=== PATIENT | male | born 1960 | race Caucasian/White ===

== ENCOUNTER 2021-09-13 07:30 | Inpatient (IN) | payer BC, SELFPAY ==
[2021-09-13] VITALS (27 sets, daily range): BP systolic 107–173; BP diastolic 69–112; PULSE 90–110; RESP 18–22; TEMP 36.7–36.9; O2SAT 92–100; BMI 28.0; BMI 28.1; BMI 31.2
--- NOTE | 2021-09-13 | IR_ITS ---
APPROVED REPORT Patient Location: Emergent Crester: HARMEET Cottrell RT (R) PROCEDURES 1. Left heart catheterization 2. Selective coronary arteriography 3. Left ventriculography 4. PTCA/stent to the left anterior descending 5. PTCA/stent of the first diagonal branch of the left anterior descending INDICATION 1. Acute myocardial infarction, 2. Abnormal EKG SCAI INDICATION Patient is a 61-year-old white male who presented with chest pain. He has been having chest pain for over 24 hours. Became progressively worse. He therefore came into the emergency room. In the emergency room he had ST elevation throughout the anterior leads. Secondary to this and continued pain he was taken directly to the cardiac catheterization laboratory Informed consent was obtained prior to the procedure. COMPLICATIONS NONE Estimated Blood Loss: LESS THAN 10 ML TECHNIQUE One percent lidocaine was used to anesthetize the right groin. The right femoral artery was accessed via the Seldinger technique. I started with a 6 Lao sheath. Catheter used for the procedure was an EBU 3.5 guide catheter with sideholes. I also used a Felipa right #4 catheter. Heparin was given in the emergency room as well as 120 mg of Brilinta. ACT was checked and additional heparin given during the procedure as well as that the end of the case ANGIOGRAPHIC RESULTS The left main artery Angiographically normal The left anterior descending artery 100% occluded after a second diagonal branch. The second diagonal branch was noted to have 95% proximal and 95% mid stenosis. There was calcium in the mid left anterior descending but there was EMELYN 0 flow The circumflex artery With smooth 20% proximal and mid stenosis The right coronary artery Had a complex 70 to 75% proximal stenosis The MANZO ventriculogram reveals Mild reduction in left ventricular systolic function with an ejection fraction of 40 to 45%. There was moderate to severe apical hypokinesis The left ventricular end-diastolic pressure 18 I initially went in with a EBU 3.5 guide catheter with sideholes. There was blunt occlusion of the left anterior descending after the takeoff of a second diagonal branch which was moderate in size with disease as mentioned above. I first tried to wire this with a Choice PT wire. I was unable. I went in with a whisper wire and was able to form a loop and get across with the help of a balloon. Once I got across I then ballooned the mid left anterior descending and restored EMELYN I flow. I stented the mid left anterior descending with a resolute [place] drug-eluting stent and then stented again in the mid/distal left anterior descending with a resolute [place] drug-eluting stent. The second stent overlapped the distal portion of my first stent. I still only had EMELYN I flow and could barely see flow to the apex. I thought some of this might be spasm. There was still a complex lesion right at the level of the diagonal branch and left anterior descending and the proximal/mid vessel. I went ahead and took a Choice PT wire and wired the second diagonal branch. I then stented the proximal diagonal branch extending into the mid vessel. I left my wire down the left anterior descending. I still missed the ostium so I went ahead and placed 1 other stent in the ostial/proximal second diagonal branch of the left anterior descending. This resulted in 0% residual stenosis down the diagonal branch and excellent flow. Before I took the stent patient had significant elevation just with crossing the diagonal branch. That resolved once the stents were deployed. I then ballooned where the stent was hanging out into the left anterior descending. I was then
--- NOTE | 2021-09-13 07:22 | ECG_ITS ---
APPROVED REPORT Exam: Resting ECG HR:101 bpm ECG Measurements Heart Rate 101 AXES OK 160 P 6 QRSd 92 QRS 64 QT 350 T 83 QTc 408 Conclusion SINUS TACHYCARDIA WITH OCCASIONAL VENTRICULAR PREMATURE COMPLEXES ANTERIOR MYOCARDIAL INFARCTION , POSSIBLY ACUTE [40+ ms Q WAVE AND/OR ST/T ABNORMALITY IN V3/V4] ACUTE PR UNCONFIRMED REPORT Electronically signed by : Ishan Valdovinos MD 09/15/2021 14:07:22
--- NOTE | 2021-09-13 07:30 | HMH.EDCP ---
ED Disposition Clinical Impression: Myocardial infarction acute Qualifiers: Myocardial infarction type: ST elevation myocardial infarction Involved coronary artery: unspecified coronary artery Qualified Code(s): I21.3 - ST elevation (STEMI) myocardial infarction of unspecified site Disposition: Admitted As Inpatient Condition on Discharge: Serious - Critical Care Critical Care Time: Yes Attestation: On , the high probability of a clinically significant, sudden or life threatening deterioration of the following system(s) required my full and direct attention, intervention and personal management. The time I documented below is in addition to time spent performing reported procedures but includes the following listed in this critical care notation. Total Critical Care Time: 35 Vital system(s) involved:: Circulatory Failure My critical care processes included: Assessment & monitoring of V/S, Initial and Re-exams, Data Review/Interpretation, Coordinating Care, Medication Orders and management, Documentation Medical Decision Making - Mitch Inquiry Pt receiving controlled substance: No Vital Signs: 09/13/21 07:30 09/13/21 07:31 09/13/21 07:37 Temperature 98.2 F Temperature Source Oral Pulse Rate 108 H 105 H Pulse Rate [Left Radial] 108 H Respiratory Rate 18 Blood Pressure 154/110 H 173/112 H Blood Pressure [Right Arm] 154/110 H Blood Pressure Mean Blood Pressure Mean [Right Arm] 124 Blood Pressure Source Automatic Cuff Automatic Cuff Blood Pressure Source [Right Arm] Automatic Cuff Blood Pressure Position Sitting Sitting Blood Pressure Position [Right Arm] Sitting 02 Sat by Pulse Oximetry 96 96 96 Oxygen Delivery Method Room Air Room Air Room Air 09/13/21 07:41 09/13/21 07:47 09/13/21 07:55 Temperature Temperature Source Pulse Rate 110 H 107 H 109 H Pulse Rate [Left Radial] Respiratory Rate Blood Pressure 164/89 H 159/96 H 136/90 Blood Pressure [Right Arm] Blood Pressure Mean 110 105 Blood Pressure Mean [Right Arm] Blood Pressure Source Automatic Cuff Blood Pressure Source [Right Arm] Blood Pressure Position Sitting Blood Pressure Position [Right Arm] 02 Sat by Pulse Oximetry 92 L 93 L 93 L Oxygen Delivery Method Room Air Room Air Room Air 09/13/21 08:00 Temperature 98.2 F Temperature Source Pulse Rate 109 H Pulse Rate [Left Radial] Respiratory Rate 18 Blood Pressure 136/90 Blood Pressure [Right Arm] Blood Pressure Mean Blood Pressure Mean [Right Arm] Blood Pressure Source Blood Pressure Source [Right Arm] Blood Pressure Position Blood Pressure Position [Right Arm] 02 Sat by Pulse Oximetry Oxygen Delivery Method Room Air - Lab Data Lab Results 09/13/21 07:35: WBC 16.0 H, RBC 5.53, Hgb 17.0, Hct 53.0 H, MCV 95.9 H, MCH 30.7, MCHC 32.0, RDW 13.7, Plt Count 280, MPV 8.3, Neut % (Auto) 86.9 H, Lymph % (Auto) 6.2 L, [place] % (Auto) 5.5, Eos % (Auto) 0.6, Baso % (Auto) 0.8, Neut # (Auto) 14.0 H, Lymph # (Auto) 1.0, [place] # (Auto) 0.9, Eos # (Auto) 0.1, Baso # (Auto) 0.1, Total Counted 100, Neutrophils % (Manual) 81 H, Lymphocytes % (Manual) 12, Monocytes % (Manual) 7, Platelet Estimate Normal, RBC Morphology Normal 09/13/21 07:35: Sodium 128 L, Potassium 4.3, Chloride 94 L, Carbon Dioxide 26, Anion Gap 12.3, BUN 7 L, Creatinine 0.90, Estimated Creat Clear 110, Estimated GFR 86, Est GFR ( Amer) 104, Glucose 154 H, Calcium 9.2, Total Bilirubin 1.0, AST 540 H*, ALT 77, Alkaline Phosphatase 64, Troponin I 60.20 H, NT-Pro-B Natriuret Pep 3710 H, Total Protein 7.8, Albumin 4.3, Globulin 3.5 H, Albumin/Globulin Ratio 1.2 09/13/21 07:35: PT 11.3, INR 1.00, APTT 37.9 H 09/13/21 07:35: Magnesium 1.4 L 09/13/21 07:55: SARS-CoV-2 (PCR) Not detected, Influenza A Untype (PCR) Not detected, Influenza Type B (PCR) Not detected Result diagrams: 09/13/21 07:35 09/13/21 07:35 Orders (Tests/Meds): ED MEDICATIONS Generic Name Dose Route Start Last Admin
--- NOTE | 2021-09-13 07:34 | XR_ITS ---
PROCEDURE INFORMATION: Exam: XR Chest Exam date and time: 09/13/2021 7:41 AM Age: 61 years old Clinical indication: Angina and shortness of breath; Additional info: Stemi/cp TECHNIQUE: Imaging protocol: Radiologic exam of the chest. Views: 1 view. COMPARISON: No relevant prior studies available. FINDINGS: Lungs: Mild left basilar and moderate right interstitial/alveolar opacities; question pneumonia. Pleural spaces: No pneumothorax. Heart/Mediastinum: Mild prominence of the cardiac silhouette, accentuated by the AP projection. Bones/joints: No acute fracture. IMPRESSION: Mild left basilar and moderate right interstitial/alveolar opacities; question pneumonia.
--- NOTE | 2021-09-13 07:41 | PC.NURSE ---
FAMILY AT BEDSIDE. PATIENT HAS BEEN PREPPED FOR HEART CATH. AWAITING VP BIOLOGY TEAM.
--- NOTE | 2021-09-13 07:42 | PC.NURSE ---
0724: EKG SENT ON STEMI PHONE. DR. LUDWIG CONFIRMED STEMI. DR. LUDWIG CALLED TO NOTIFY US TO CALL DR. ANG. 0725: DR. STILES SPEAKING WITH DR. ANG TO NOTIFY HIM OF STEMI. DR. ANG STATED TO ACTIVATE STEMI TEAM. 0728: STEMI TEAM PAGED. 07: Allyssa SOLORIO RN SPOKE WITH Noemy JIMENEZ RN 0730: Allyssa SOLORIO RN SPOKE WITH Kevin SANCHEZ RN AND Kevin STEPHENS, [facility]. 0732: DR. RODRIGUEZ PAGED TO NOTIFY OF ADMISSION. AWAITING CALL BACK. 0738: Allyssa SOLORIO RN SPOKE TO DR. ANG TO INQUIRE IF HE WOULD LIKE ANY MEDICINES GIVEN PRIOR TO ARRIVAL. DR. ANG GAVE VERBAL ORDER FOR 7,000 UNITS OF HEPARIN IVP AND 180MG OF BRILINTA. 0747: DR. RODRIGUEZ PAGED AGAIN. AWAITING CALL BACK.
[2021-09-13 07:49] LABS: Basophils # 0.1 K/mm3 (0-0.2); Basophils % 0.8 % (0.1-2.0); Eosinophils # 0.1 K/mm3 (0.0-0.4); Eosinophils % 0.6 % (0.1-12.0); Lymphocytes % 6.2 % (10-50); Mean Corpuscular Hemoglobin 30.7 pg (27.0-31.2); Mean Corpuscular Volume 95.9 fl (80-94); Mean Platelet Volume 8.3 fl (7.4-10.4); Monocytes # 0.9 K/mm3 (0.1-1.0); Monocytes % 5.5 % (1.7-9.3); Neutrophils % 86.9 % (37.0-80.0); Platelet Count 280 K/mm3 (142-424); Red Blood Count 5.53 M/mm3 (4.60-6.20); Red Cell Distribution Width 13.7 % (11.5-17.5)
[2021-09-13 07:51] LABS: MANUAL DIFFERENTIAL MANUAL DIFFERENTIAL (MANUAL DIFF)
--- NOTE | 2021-09-13 07:54 | PC.NURSE ---
covid swab sent to lab
--- NOTE | 2021-09-13 07:54 | PC.NURSE ---
Dr. Howard speaking with Dr. Lomeli at this time
[2021-09-13 07:59] LABS: Coronavirus 19, PCR Not Detected (NotDetected); Influenza A, PCR Not Detected (NotDetected); Influenza B, PCR Not Detected (NotDetected)
--- NOTE | 2021-09-13 08:00 | PC.NURSE ---
DARELL Maguire in entry level lab technician called and reports they are ready for patient in the entry level lab technician. pt being transported via stretcher with Elayne Martell RN and Rosalba Contreras RN
[2021-09-13 08:02] LABS: Alanine Aminotransferase 77 U/L (12-78); Albumin Level 4.3 g/dl (3.5-5.0); Albumin/Globulin Ratio 1.2 (1.1-1.8); Alkaline Phosphatase 64 U/L (38-126); Anion Gap 12.3 mEq/L (5-15); Aspartate Amino Transferase 540 U/L (17-59); Blood Urea Nitrogen 7 mg/dl (9-20); Calcium 9.2 mg/dl (8.4-10.2); Carbon Dioxide 26 mmol/L (22.0-30.0); Chloride 94 mmol/L (98-107); Creatinine Clearance Estimated 110 mL/min (50-200); Estimated Glomerular Filt Rate 86 ml/min (>60); GFR (African American) 104 ML/MIN (>60); Globulin 3.5 g/dL (1.3-3.2); Glucose 154 mg/dl (74-100); Potassium 4.3 mmoL/L (3.5-5.1); Sodium 128 mmol/L (136-145); Total Protein,Serum 7.8 g/dl (6.3-8.2)
[2021-09-13 08:14] LABS: NT Pro Brain Natriuretic Pep. 3710 pg/mL (0-125)
--- NOTE | 2021-09-13 08:15 | PC.NURSE ---
Spoke with Indigo from lab needed MAG and PTT. So orders were put in for needed labs.
[2021-09-13 08:26] LABS: Magnesium 1.4 mg/dl (1.6-2.3)
[2021-09-13 08:29] LABS: Activated Partial Thrombo Time 37.9 seconds (22.8-30.6); Prothrombin Time 11.3 seconds (10.1-12.5)
[2021-09-13 08:56] LABS: Lymphocytes % 12 % (10-50); Monocytes % 7 % (2-9); Neutrophils % 81 % (42-76); Total Cells Counted 100
[2021-09-13 08:57] LABS: RBC Morphology Normal
[2021-09-13 08:58] LABS: Platelet Estimate Normal
[2021-09-13 11:11] LABS: CATHL Activated Clotting Time 234 SEC (74-125)
[2021-09-13 11:12] LABS: CATHL Activated Clotting Time 221 SEC (74-125)
--- NOTE | 2021-09-13 14:41 | HMH.HP ---
*Admission Date: 09/13/21 *Chief complaint: Chest pain *History of present illness: Mr. Leslie is a 61-year-old white male who presented to the ER early this morning with a typical history for cardiac chest pain that had been persistent for about 36 hours. He noted some mild shortness of breath. He had been doing some strenuous lifting at work and thought he had simply strained a muscle. On arrival to the ER, his initial EKG was consistent with a STEMI and STEMI alert was called and he was taken directly to the blood bank laboratory technologist by Dr. Yehuda Sesay placed for stents in the LAD and 2 stents in the second diagonal branch of the LAD. Patient was also noted to have significant RCA stenosis which was not addressed at this time. I am seeing the patient after he has arrived to the stepdown unit. He is now feeling much better and all the chest pain and pressure has resolved. He has no past history of heart disease. He does smoke 2 packs of cigarettes per day. He has a family history of heart disease in his mother. [facility] History Medical History: Denies:: Diabetes Mellitus Type 2, Hyperlipidemia, Hypertension *Have you ever received a pneumonia vaccine?: No *Have you received a flu vaccine this season?: No Other Surgeries: Yes: No Previous Surgery Amputation: No Fractures: Yes (finger, toe) - *Social History Last grade of school completed: 7th or 8th Smoking Status: Current every day smoker Tobacco Type: cigarettes # Packs/Day (cigarettes): 2 Alcohol Intake: never *Occupational Status:: employed Household Members: none *Travel in the last 8 weeks: None Family Hx:: Cancer, Heart Attack Review of Systems - Constitutional Denies malaise - Eyes Denies change in vision - ENT Denies dizziness, Denies headache(s) - *Cardiovascular Reports chest pain (See HPI) - *Respiratory Reports shortness of breath, Denies chest congestion, Denies cough - *Gastrointestinal Denies change in bowel habits, Denies nausea - *Genitourinary Reports difficulty urinating - *Musculoskeletal Denies joint pain - Integumentary/Breasts Denies change in skin color - *Neurologic Denies confusion, Denies dizziness, Denies memory loss - Psychiatric Denies behavioral changes - Endocrine Denies rapid, pounding, or irregular heartbeat - Hematologic/Lymphatic Denies easy bruising Meds Allergies Allergy/AdvReac Type Severity Reaction Status Date / Time No Known Allergies Allergy Verified 09/13/21 07:34 Exam Vital signs and Labs for Last 24 Hours: Temp Pulse Resp BP Pulse Ox 98.1 F 101 H 20 164/89 H 95 09/13/21 12:00 09/13/21 12:10 09/13/21 12:10 09/13/21 12:10 09/13/21 12:10 Laboratory Results - last 24 hr 09/13/21 07:35: WBC 16.0 H, RBC 5.53, Hgb 17.0, Hct 53.0 H, MCV 95.9 H, MCH 30.7, MCHC 32.0, RDW 13.7, Plt Count 280, MPV 8.3, Neut % (Auto) 86.9 H, Lymph % (Auto) 6.2 L, [place] % (Auto) 5.5, Eos % (Auto) 0.6, Baso % (Auto) 0.8, Neut # (Auto) 14.0 H, Lymph # (Auto) 1.0, [place] # (Auto) 0.9, Eos # (Auto) 0.1, Baso # (Auto) 0.1, Total Counted 100, Neutrophils % (Manual) 81 H, Lymphocytes % (Manual) 12, Monocytes % (Manual) 7, Platelet Estimate Normal, RBC Morphology Normal 09/13/21 07:35: Sodium 128 L, Potassium 4.3, Chloride 94 L, Carbon Dioxide 26, Anion Gap 12.3, BUN 7 L, Creatinine 0.90, Estimated Creat Clear 110, Estimated GFR 86, Est GFR ( Amer) 104, Glucose 154 H, Calcium 9.2, Total Bilirubin 1.0, AST 540 H*, ALT 77, Alkaline Phosphatase 64, Troponin I 60.20 H, NT-Pro-B Natriuret Pep 3710 H, Total Protein 7.8, Albumin 4.3, Globulin 3.5 H, Albumin/Globulin Ratio 1.2 09/13/21 07:35: PT 11.3, INR 1.00, APTT 37.9 H 09/13/21 07:35: Magnesium 1.4 L 09/13/21 07:55: SARS-CoV-2 (PCR) Not detected, Influenza A Untype (PCR) Not detected, Influenza Type B (PCR) Not detected 09/13/21 08:26: Activated Clotting Time 221 H* 09/13/21 09:07: Activated Clotting Time 234 H* I & O for Last 24 hours: Intake & Output 09/11/21 09/12/21
--- NOTE | 2021-09-13 16:04 | PC.NURSE ---
Patient is s/p STEMI this am, heart cath with coronary stenting to LAD and Diag, right femoral cath site cdi with dsg in place, no bleeding or hematoma noted, ST elevation noted on telemetry, MD aware, patient is alert and oriented x4, perrla, HR reg, no edema noted, abd soft and nontender with active bowel sounds in all quads, appetite good, voids per urinal and BR without difficulty, peripheal pulses 2+, denies any CP or SOA at this time, call light in reach, bed in lowest position.
[2021-09-14] VITALS (14 sets, daily range): BP systolic 95–125; BP diastolic 56–85; PULSE 88–110; RESP 18–22; TEMP 36.4–37.3; O2SAT 94–100; BMI 31.5
--- NOTE | 2021-09-14 06:03 | PC.NURSE ---
Pt resting in bed. States he feels better. Tachypnea noted. Pt denies soa. Pt remains on RA. (R) femoral cath site is C/D/I. No hematoma noted. BP stable. HR tachycardic at times. Pt remains sinus with ST elevation. MD aware. Medications administered per may. No other concerns.
[2021-09-14 07:05] LABS: Basophils # 0.1 K/mm3 (0-0.2); Basophils % 0.4 % (0.1-2.0); Eosinophils % 0.2 % (0.1-12.0); Hematocrit 46.9 % (42.0-52.0); Hemoglobin 16.2 g/dL (14.1-18.0); Lymphocytes # 1.5 K/mm3 (0.7-4.5); Lymphocytes % 8.8 % (10-50); Mean Corpuscular HGB Conc 34.6 g/dL (31.8-35.4); Mean Corpuscular Hemoglobin 31.4 pg (27.0-31.2); Mean Corpuscular Volume 90.6 fl (80-94); Mean Platelet Volume 8.5 fl (7.4-10.4); Monocytes # 1.3 K/mm3 (0.1-1.0); Monocytes % 7.5 % (1.7-9.3); Neutrophils # 14.4 K/mm3 (1.8-7.8); Neutrophils % 83.1 % (37.0-80.0); Platelet Count 248 K/mm3 (142-424); Red Blood Count 5.18 M/mm3 (4.60-6.20); Red Cell Distribution Width 13.9 % (11.5-17.5); White Blood Count 17.3 K/mm3 (4.8-10.8)
[2021-09-14 07:11] LABS: MANUAL DIFFERENTIAL MANUAL DIFFERENTIAL (MANUAL DIFF)
[2021-09-14 07:26] LABS: Alanine Aminotransferase 52 U/L (12-78); Albumin Level 3.6 g/dl (3.5-5.0); Albumin/Globulin Ratio 1.1 (1.1-1.8); Alkaline Phosphatase 59 U/L (38-126); Anion Gap 11.6 mEq/L (5-15); Aspartate Amino Transferase 205 U/L (17-59); Bilirubin,Total 0.9 mg/dl (0.2-1.3); Blood Urea Nitrogen 10 mg/dl (9-20); Calcium 8.9 mg/dl (8.4-10.2); Carbon Dioxide 21 mmol/L (22.0-30.0); Chloride 101 mmol/L (98-107); Cholesterol 174 mg/dl (140-200); Creatinine Clearance Estimated 99 mL/min (50-200); Estimated Glomerular Filt Rate 76 ml/min (>60); GFR (African American) 92 ML/MIN (>60); Globulin 3.3 g/dL (1.3-3.2); Glucose 107 mg/dl (74-100); HDL Cholesterol 43 mg/dl (40-60); Potassium 3.6 mmoL/L (3.5-5.1); Sodium 130 mmol/L (136-145); Total Protein,Serum 6.9 g/dl (6.3-8.2); Triglycerides 60 mg/dl (30-150); VLDL Cholesterol 12 mg/dL (0-40)
[2021-09-14 07:37] LABS: Direct LDL Cholesterol 81.63 mg/dL (100-129)
[2021-09-14 08:31] LABS: Lymphocytes % 13 % (10-50); Monocytes % 6 % (2-9); Neutrophils % 81 % (42-76); Total Cells Counted 100
[2021-09-14 08:32] LABS: Platelet Estimate Normal; RBC Morphology Normal
--- NOTE | 2021-09-14 09:30 | P.PN_ITS ---
Internal Medicine - PN: Subj *Date: 09/14/21 *Time: 09:30 Interval history: He is feeling much better after his heart cath yesterday. Denies pain or pressure. No shortness of breath. He would like to go home today. Exam Vital signs and Labs for Last 24 Hours: Temp Pulse Resp BP Pulse Ox 98.8 F 100 H 21 125/77 100 09/14/21 04:00 09/14/21 08:00 09/14/21 06:00 09/14/21 06:00 09/14/21 06:00 Laboratory Results - last 24 hr 09/13/21 08:26: Activated Clotting Time 221 H* 09/13/21 09:07: Activated Clotting Time 234 H* 09/14/21 06:16: WBC 17.3 H, RBC 5.18, Hgb 16.2, Hct 46.9, MCV 90.6, MCH 31.4 H, MCHC 34.6, RDW 13.9, Plt Count 248, MPV 8.5, Neut % (Auto) 83.1 H, Lymph % (Auto) 8.8 L, [place] % (Auto) 7.5, Eos % (Auto) 0.2, Baso % (Auto) 0.4, Neut # (Auto) 14.4 H, Lymph # (Auto) 1.5, [place] # (Auto) 1.3 H, Eos # (Auto) 0.0, Baso # (Auto) 0.1, Total Counted 100, Neutrophils % (Manual) 81 H, Lymphocytes % (Manual) 13, Monocytes % (Manual) 6, Platelet Estimate Normal, RBC Morphology Normal 09/14/21 06:16: Sodium 130 L, Potassium 3.6, Chloride 101, Carbon Dioxide 21 L, Anion Gap 11.6, BUN 10 D, Creatinine 1.00, Estimated Creat Clear 99, Estimated GFR 76, Est GFR ( Amer) 92, Glucose 107 H D, Calcium 8.9, Total Bilirubin 0.9, AST 205 H D, ALT 52 D, Alkaline Phosphatase 59, Total Protein 6.9, Albumin 3.6 D, Globulin 3.3 H, Albumin/Globulin Ratio 1.1, Triglycerides 60, Cholesterol 174, LDL Cholesterol Direct 81.63 L, VLDL Cholesterol 12, HDL Cholesterol 43, Cholesterol/HDL Ratio 4.0 H I & O for Last 24 hours: Intake & Output 07/07/22 07/08/22 07/09/22 07/10/22 11:59 11:59 11:59 11:59 Intake Total 1254 / 1254 Output Total 100 / 100 2074 Balance -100 / -100 -821 / -821 Weight 193 lb 7 oz 196 lb 6.4 oz Narrative: Alert and oriented. No acute distress. Chest with coarse breath sounds. No rales or wheezes. Heart is regular with no ectopy. Extremities no edema. Assessment and Plan (1) STEMI (ST elevation myocardial infarction) Status: Acute Category: Medical Code(s): I21.3 - ST elevation (STEMI) myocardial infarction of unspecified site (2) Tobacco abuse Status: Acute Category: Medical Code(s): Z72.0 - Tobacco use (3) Pulmonary atelectasis Status: Acute Category: Medical Code(s): J98.11 - Atelectasis (4) Elevated AST (SGOT) Status: Acute Category: Medical Code(s): R74.01 - Elevation of levels of liver transaminase levels (5) Leukocytosis Status: Acute Category: Medical Code(s): D72.829 - Elevated white blood cell count, unspecified - Assessment and plan all Dx Assessment and Plan for all problems:: He is stable post NE and coronary stenting. Liver functions improved. White blood cell count still elevated. Repeat chest x-ray today. Explained to patient he needs to remain in hospital to continue monitoring for arrhythmias or other complications. Thus far he has had a stable course. Plan to check echocardiogram tomorrow. Add Lipitor.
--- NOTE | 2021-09-14 09:34 | XR_ITS ---
PROCEDURE INFORMATION: Exam: XR Chest Exam date and time: 09/14/2021 10:18 AM Age: 61 years old Clinical indication: Shortness of breath; Additional info: F/u atelectasis vs pneumonia. Leukocytosis TECHNIQUE: Imaging protocol: Radiologic exam of the chest. Views: 2 views. COMPARISON: CR XR CHEST PORTABLE 09/13/2021 7:41 AM FINDINGS: Lungs: Significantly improved aeration of the lungs with improved lung volumes. [id number]-bwxawewd linear and hazy opacities in the left and right mid lungs, greater on the right. Findings may be at least in part due to linear atelectasis/fibrosis. Pneumonia is not excluded. Pleural spaces: Unremarkable. No pleural effusion. No pneumothorax. Heart/Mediastinum: Unremarkable. No cardiomegaly. Vasculature: Vascular calcifications including coronary artery calcifications. Question coronary artery stents. Bones/joints: No acute fracture. Degenerative changes. IMPRESSION: Significantly improved aeration of the lungs with improved lung volumes. Wvwu-bc-dhnwxgfz linear and hazy opacities in the left and right mid lungs, greater on the right. Findings may be at least in part due to linear atelectasis/fibrosis. Pneumonia is not excluded.
--- NOTE | 2021-09-14 14:45 | P.CONPHA_ITS ---
[facility] Pharmacy VTE Monitoring - Patient Demographics Admission date: 09/14/21 Report Date: 09/14/21 Time: 14:45 Allergies/Adverse Reactions: Patient Allergies No Known Allergies Allergy (Verified 09/13/21 07:34) Height: 1.68 m Weight: 89.086 kg Patient Problems: Current Active Problems Myocardial infarction acute (Acute) STEMI (ST elevation myocardial infarction) (Acute) Tobacco abuse (Acute) Pulmonary atelectasis (Acute) Elevated AST (SGOT) (Acute) Leukocytosis (Acute) - VTE Risk Labs: VTE Related Lab Results Hgb 16.2 g/dL (14.1-18.0) 09/14/21 06:16 Hct 46.9 % (42.0-52.0) 09/14/21 06:16 Plt Count 248 K/mm3 (142-424) 09/14/21 06:16 PT 11.3 seconds (10.1-12.5) 09/13/21 07:35 INR 1.00 (0.9-1.1) 09/13/21 07:35 APTT 37.9 seconds (22.8-30.6) H 09/13/21 07:35 BUN 10 mg/dl (9-20) D 09/14/21 06:16 Creatinine 1.00 mg/dl (0.66-1.25) 09/14/21 06:16 Estimated Creat Clear 99 mL/min (50-200) 09/14/21 06:16 - Prophylaxis Types of VTE Prophylaxis: TEDS Knee High (BERNABE HOSE ORDER PLACED.) Location of Applied Device: Bilateral Lower Extremeties
--- NOTE | 2021-09-14 17:05 | PC.NURSE ---
Patient has been pleasant and cooperative this shift, alert and oriented x4, perrla, HR reg, ST elevation on telemetry, MD aware, lungs cta, on RA, abd soft and nontender, active bowel sounds in all quads, voids per urinal without difficulty, urine yellow and clear, denies any cp or soa, vss, call light in reach with bed in lowest position.
[2021-09-15] VITALS (8 sets, daily range): BP systolic 90–126; BP diastolic 47–73; PULSE 84–107; RESP 18–22; TEMP 36.5–37.4; O2SAT 95–98; BMI 31.1
--- NOTE | 2021-09-15 04:37 | PC.NURSE ---
Pt A&O x4. States he feels better. Has denied any CP or soa. Has expressed concerns on cost of Brilinta. Education provided. Pt remains NSR with ST elevation on telemetry. BP has been soft at times this shift. Other VSS. Pt remains on RA. Has used urinal this shift. No BM. Pt has been encouraged to sit up in chair for breakfast this AM. Call light within reach.
[2021-09-15 06:29] LABS: Basophils # 0.1 K/mm3 (0-0.2); Basophils % 0.7 % (0.1-2.0); Eosinophils # 0.2 K/mm3 (0.0-0.4); Eosinophils % 1.4 % (0.1-12.0); Hematocrit 46.4 % (42.0-52.0); Hemoglobin 15.3 g/dL (14.1-18.0); Lymphocytes # 1.5 K/mm3 (0.7-4.5); Lymphocytes % 12.4 % (10-50); Mean Corpuscular HGB Conc 33.1 g/dL (31.8-35.4); Mean Corpuscular Hemoglobin 30.7 pg (27.0-31.2); Mean Corpuscular Volume 92.8 fl (80-94); Mean Platelet Volume 8.4 fl (7.4-10.4); Monocytes # 1.1 K/mm3 (0.1-1.0); Monocytes % 8.9 % (1.7-9.3); Neutrophils # 9.4 K/mm3 (1.8-7.8); Neutrophils % 76.6 % (37.0-80.0); Platelet Count 268 K/mm3 (142-424); Red Cell Distribution Width 13.8 % (11.5-17.5); White Blood Count 12.2 K/mm3 (4.8-10.8)
[2021-09-15 06:39] LABS: Anion Gap 12.9 mEq/L (5-15); Blood Urea Nitrogen 18 mg/dl (9-20); Calcium 8.6 mg/dl (8.4-10.2); Carbon Dioxide 19 mmol/L (22.0-30.0); Chloride 105 mmol/L (98-107); Creatinine Clearance Estimated 89 mL/min (50-200); Estimated Glomerular Filt Rate 68 ml/min (>60); GFR (African American) 83 ML/MIN (>60); Glucose 106 mg/dl (74-100); Potassium 3.9 mmoL/L (3.5-5.1); Sodium 133 mmol/L (136-145)
--- NOTE | 2021-09-15 07:45 | HMH.ACPN2 ---
Internal Medicine - PN: Subj *Date: 09/15/21 *Time: 07:45 Interval history: Patient seen and examined this morning. Continues with stable course post OK. Denies chest pain or shortness of breath. He is very anxious to go home. Exam Vital signs and Labs for Last 24 Hours: Temp Pulse Resp BP Pulse Ox 99.3 F 88 20 115/65 96 09/15/21 12:00 09/15/21 14:00 09/15/21 14:00 09/15/21 14:00 09/15/21 14:00 Laboratory Results - last 24 hr 09/15/21 05:58: WBC 12.2 H D, RBC 5.00, Hgb 15.3, Hct 46.4, MCV 92.8, MCH 30.7, MCHC 33.1, RDW 13.8, Plt Count 268, MPV 8.4, Neut % (Auto) 76.6, Lymph % (Auto) 12.4, [place] % (Auto) 8.9, Eos % (Auto) 1.4, Baso % (Auto) 0.7, Neut # (Auto) 9.4 H, Lymph # (Auto) 1.5, [place] # (Auto) 1.1 H, Eos # (Auto) 0.2, Baso # (Auto) 0.1 09/15/21 05:58: Sodium 133 L, Potassium 3.9, Chloride 105, Carbon Dioxide 19 L, Anion Gap 12.9, BUN 18 D, Creatinine 1.10, Estimated Creat Clear 89, Estimated GFR 68, Est GFR ( Amer) 83, Glucose 106 H, Calcium 8.6 I & O for Last 24 hours: Intake & Output 09/13/21 09/14/21 09/15/21 09/16/21 11:59 11:59 11:59 11:59 Intake Total 1254 / 1254 1283 / 1283 240 / 240 Output Total 100 / 100 2905 / 2905 1740 / 1740 Balance -100 / -100 -1651 / -1651 -457 / -457 240 / 240 Weight 193 lb 7 oz 196 lb 6.4 oz 193 lb 9.6 oz Narrative: He is lying comfortably in bed. Blood pressure noted to be lower but stable. Appears in no distress. Lungs are clear to auscultation. Heart is regular with no ectopy. Extremities no edema. Assessment and Plan (1) STEMI (ST elevation myocardial infarction) Status: Acute Category: Medical Code(s): I21.3 - ST elevation (STEMI) myocardial infarction of unspecified site (2) Tobacco abuse Status: Acute Category: Medical Code(s): Z72.0 - Tobacco use (3) Pulmonary atelectasis Status: Acute Category: Medical Code(s): J98.11 - Atelectasis (4) Elevated AST (SGOT) Status: Acute Category: Medical Code(s): R74.01 - Elevation of levels of liver transaminase levels (5) Leukocytosis Status: Acute Category: Medical Code(s): D72.829 - Elevated white blood cell count, unspecified - Assessment and plan all Dx Assessment and Plan for all problems:: Follow-up chest x-ray shows marked improvement and his white count is returning to normal. Results of echocardiogram pending. Await further cardiology recommendations.
--- NOTE | 2021-09-15 08:00 | CA_ITS ---
APPROVED REPORT EXAM: Comprehensive 2D, Doppler, and color-flow Echocardiogram Geometry Professor: Lulu Govea RDCS Ht: 5 ft 6 in Wt: 199lbs BSA: 2.00 BP: 136/90 mmHg Indications: STEMI 2D Dimensions LVOT 2.16 cm (M/F) 1.5-2.5 M-Mode Dimensions RVDd 2.25 cm (0.9-2.6) LA Diam 2.70 cm (1.9-4.0) LVDd 5.18 cm (3.5-5.7) Ao Diam 3.96 cm (2.0-3.7) LVDs 4.34 cm (3.5-5.7) IVSd 0.68 cm (0.6-1.1) PWd 0.96 cm (0.6-1.1) EF (Teich) 33.90% FS 16.20% EDV (Teich) 128.40 mL ESV (Teich) 84.90 mL LV Diastology E Decel Time 147.00 (160-240 msec) E/A Ratio 0.6 MED E' 4.10 (< 7 cm/sec) E'/MED E' Ratio 7.78 (>14) LAT E' 3.40 (<10 cm/sec) E/LAT E' Ratio 9.38 (>14) Aortic Valve AI PHT 821.00 ms Mitral Valve MV E Max Boyd. 32.00 (40-130 cm/s) MV A Velocity 51.00 (40-130 cm/s) E/A Ratio 0.62 MV Decel. Time 147.00 (160-240 ms) MV PHT 43.00 ms Left Ventricle Left atrium is mildly enlarged, left ventricle is normal size mild concentric left ventricular hypertrophy, severe reduced left ventricular systolic function, estimated ejection fraction approximately 20%, there is marked hypokinesis involving mid to distal septum, anterior, apical and anteroapical wall. Grade 1 diastolic dysfunction seen without tissue Doppler evidence of raise left atrial pressure. Right Ventricle Right atrium and right ventricle are normal size and contractility. Aortic Valve Aortic valve is minimally thickened and fibrosed, there is no aortic stenosis, there is mild aortic insufficiency. Mitral Valve Mitral valve grossly normal, there is trace mitral regurgitation. Tricuspid Valve Tricuspid valve grossly normal, there is trace tricuspid regurgitation, tricuspid regurgitation jet velocity is inadequate for calculation of the right ventricular systolic pressure. Pulmonic Valve Pulmonic valve is poorly visualized. Great Vessels Aortic root is normal size. Inferior vena cava is normal size with normal inspiratory collapse. Pericardium No significant pericardial effusion noted. Conclusion 1. Mildly enlarged left atrium, normal left ventricular size, mild concentric left ventricular hypertrophy, severe reduced left ventricular systolic function, estimated ejection fraction 20% with multiple segmental wall motion abnormalities described above, grade 1 diastolic dysfunction without tissue Doppler evidence of raise left atrial pressure. 2. Mild aortic, trace mitral and tricuspid regurgitation. 3. No significant pericardial effusion. 4. Inferior vena cava normal size with normal inspiratory collapse. Electronically signed by : John Deluca MD 09/15/2021 12:18:14
--- NOTE | 2021-09-15 10:22 | HMH.CNCARD ---
History of Present Illness Consult date: 09/15/21 Requesting physician: Neno Lomeli Consult reason: chest pain Chief complaint: STEMI Additional Medical History:: 1. Tobacco use, 2 packs/day times greater than 40 years 2. Family history of early coronary disease in his mother in her 60s who also was a smoker 3. Hyperlipidemia 4. CAD A. STEMI, 09/15/2021 [facility], IMPRESSION 1. Acute myocardial infarction with acute closure of the proximal/mid left anterior descending with EMELYN 0 flow 2. Critical stenosis noted in the proximal and proximal/mid moderate second diagonal branch of the left anterior descending 3. Moderate to severe stenosis noted in the proximal large dominant right coronary artery 4. Mild to moderate diffuse coronary calcification 5. Mild reduction in left ventricular systolic function with wall motion abnormality as above 6. Elevated left ventricular end-diastolic pressure 7. Successful angioplasty and stenting of the proximal/mid, mid and mid/distal left anterior descending with resolute Donald drug-eluting stent resulting in 0% residual stenosis and muslim of normal EMELYN-3 flow to the apex 8. Successful angioplasty and stenting of the ostial/proximal/mid second diagonal branch of the left anterior descending with resolute Donald drug-eluting stents resulting in 0% residual stenosis 9. Successful placement of an Angio-Seal device in the right common femoral artery PLAN 1. Patient now has EMELYN-3 flow to the left anterior descending. This was a difficult case. In total, 4 stents were placed in the left anterior descending itself and 2 in the second diagonal branch of the left anterior descending. Patient now has EMELYN-3 flow to the apex and excellent flow throughout the left coronary system. There is still moderate to severe disease in the proximal right coronary artery. That can be managed in 2 to 3 weeks. I decided not to fix it at this time as we gave a lot of contrast during the procedure to fix the acute vessel. This is not a critical stenosis, but would consider fixing this in the future especially if patient continues to have symptoms. Brilinta 180 mg x 1 was given prior to the procedure as well as heparin. Patient will remain on Brilinta 90 mg twice daily. Lasix 40 mg IV will be given in 2 hours as well as gentle IV fluids. Echocardiogram will be obtained. Aggressive risk factor modification. Follow-up in cardiology clinic in 1 to 2 weeks for further evaluation and treatment Electronically signed by : Yehuda Sesay MD 09/13/2021 09:35:54 History of present illness: Mr. Leslie is a 61-year-old white male who presented to the ER early this morning with a typical history for cardiac chest pain that had been persistent for about 36 hours. He noted some mild shortness of breath. He had been doing some strenuous lifting at work and thought he had simply strained a muscle. On arrival to the ER, his initial EKG was consistent with a STEMI and STEMI alert was called and he was taken directly to the wheelabrator operator by Dr. Yehuda Sesay placed 4 stents in the LAD and 2 stents in the second diagonal branch of the LAD. Patient was also noted to have significant RCA stenosis which was not addressed at this time. I am seeing the patient after he has arrived to the stepdown unit. He is now feeling much better and all the chest pain and pressure has resolved. He has no past history of heart disease. He does smoke 2 packs of cigarettes per day. He has a family history of heart disease in his mother. The above per Dr. Lomeli. Events confirmed as noted above. Initial troponin on admission was 60. Patient denies any prior cardiac disease. No previous history of treatment for diabetes, hypertension or hyperlipidemia. Blood pressure over the weekend has been borderline low with systolic pressure in the 90-110 mmHg range. Patient denies any further chest pain, pressure or tightness. Echocardiogram was pe
--- NOTE | 2021-09-15 14:13 | HMH.PHAINT ---
DISCHARGE MEDICATION COUNSELING PROVIDED. DISCUSSED THE FOLLOWING: -ASPIRIN (DAILY, BLOOD THINNER, BLEED/BRUISE RISK, WHERE BLEEDING OCCURS WILL CHANGE APPEARANCE) -BRILINTA (TWICE DAILY, BLOOD THINNER, BLEED/BRUISE RISK, WHERE BLEEDING OCCURS WILL CHANGE APPEARANCE, GO TO ER IF YOU BUMP HEAD) -ENTRESTO (TWICE DAILY, FOR HIGH BLOOD PRESSURE, DIZZINESS/LIGHTHEADED, HYPERKALEMIA = MUSCLE SPASMS, IRREGULAR HEARTBEAT, ETC) -ATORVASTATIN (AT BEDTIME, FOR HIGH CHOLESTEROL, WATCH FOR MUSCLE PAIN/WEAKNESS, TALK TO MD IF THIS OCCURS) -BETA ARIE (NOT GIVEN DUE TO HYPOTENSION, WILL ADDRESS AT FOLLOW UP APPOINTMENT PER DARELL CERVANTES) PATIENT ENDORSED NO QUESTIONS AT THIS TIME.
--- NOTE | 2021-09-15 23:12 | HMH.DCSUM ---
General - General Admission date:: 09/13/21 <Neno Lomeli - 09/23/21 22:07> 09/13/21 <MarjanAlexa - 09/15/21 23:21> Discharge date: 09/15/21 <Alexa Phillip - 09/15/21 23:21> HPI HPI: Mr. Leslie is a 61-year-old white male who presented to the ER early this morning with a typical history for cardiac chest pain that had been persistent for about 36 hours. He noted some mild shortness of breath. He had been doing some strenuous lifting at work and thought he had simply strained a muscle. On arrival to the ER, his initial EKG was consistent with a STEMI and STEMI alert was called and he was taken directly to the cath lab nurse by Dr. Yehuda Sesay placed for stents in the LAD and 2 stents in the second diagonal branch of the LAD. Patient was also noted to have significant RCA stenosis which was not addressed at this time. I am seeing the patient after he has arrived to the stepdown unit. He is now feeling much better and all the chest pain and pressure has resolved. He has no past history of heart disease. He does smoke 2 packs of cigarettes per day. He has a family history of heart disease in his mother. <MarjanAlexa - 09/15/21 23:21> Hospital Course Hospital Course: Patient was admitted to stepdown for observation. Smoking cessation was discussed. His white count was initially elevated and his chest x-ray showed some bibasilar atelectasis. Clinically he did not have pneumonia. Repeat CBC and chest x-ray were ordered. He felt much better after his heart cath. Lipitor was added. Repeat chest x-ray showed significantly improved aeration of the lungs. There was mild to moderate and hazy opacities in the left and right midlungs. His white blood cell count returned to normal. His echo showed a severely reduced left ventricular systolic function of 20% with grade 1 diastolic dysfunction. Cardiology initiated the patient on Entresto and felt he should have a LifeVest prior to discharge. A LifeVest was ordered, but was pending approval. The patient was anxious to go home and cardiology felt he could go home on aspirin 81 mg daily, Brilinta 90 mg twice daily, Entresto 24/26 mg twice daily, and atorvastatin 40 mg daily. Once the LifeVest is approved, cardiology will contact him. They wanted to follow-up with him in 1 week. <Alexa Phillip - 09/15/21 23:21> Objective Vital signs: Temp Pulse Resp BP Pulse Ox 99.3 F 88 20 115/65 96 09/15/21 12:00 09/15/21 14:00 09/15/21 14:00 09/15/21 14:00 09/15/21 14:00 <Neno Lomeli - 09/23/21 22:07> Temp Pulse Resp BP Pulse Ox 99.3 F 88 20 115/65 96 09/15/21 12:00 09/15/21 14:00 09/15/21 14:00 09/15/21 14:00 09/15/21 14:00 <Alexa Phillip - 09/15/21 23:21> Narrative: - Constitutional no acute distress, cooperative - *Routine HEENT Exam Head: Present: normocephalic, atraumatic Eye: Present: EOMI, PERRL. Absent: scleral injection ENT: Absent: mucous membranes moist - *Routine Neck Exam Present: supple, full ROM. Absent: lymphadenopathy, thyromegaly - *Routine Respiratory Exam Present: CTA bilaterally - *Routine Cardiovascular Exam Present: RRR. Absent: murmur - *Routine Abdominal Exam Present: soft. Absent: tenderness, mass - *Routine Rectal Exam Rectal:: deferred - *Routine Genitalia Exam Genitalia:: deferred - *Routine Extremities Exam Absent: edema - *Routine Skin Exam Absent: rash - *Routine Neurological Exam Present: alert, oriented X3, CN II-XII intact. Absent: motor deficit <Alexa Phillip - 09/15/21 23:21> Results Labs on day of discharge: Labs from last 24 hours 09/15/21 09/15/21 05:58 05:58 WBC 12.2 H D RBC 5.00 Hgb 15.3 Hct 46.4 MCV 92.8 MCH 30.7 MCHC 33.1 RDW 13.8 Plt Count 268 MPV 8.4 Neut % (Auto) 76.6 Lymph % (Auto) 12.4 [place] % (Auto) 8.9 Eos % (Auto) 1.4 Baso % (Auto) 0.7 Neut # (Auto) 9.4 H Lymph # (Auto) 1.5
--- NOTE | 2021-09-16 14:31 | CARE MANAGER ---
Attempted to contact patient related to discharge from hospital. Phone number listed is not a working number. DARELL Tom
== END 2021-09-15 14:29 | disposition home or self-care (01) | DRG 246 ==
LOC: ER 07:49 → 2ND 08:12
PROVIDERS: Internal Medicine Cardiovascular Disease; Admitting Provider Family Medicine; Emergency Provider Emergency Medicine; PCP Family Medicine; Visit Provider Family Medicine
PROC: 027137Z Dilation of Coronary Artery, Two Arteries with Four or More Drug-eluting Intraluminal Devices, Percutaneous Approach (ICD-10-PCS; principal; 2021-09-13 07:50)
DX: I21.3 ST elevation (STEMI) myocardial infarction of unspecified site (principal); J98.11 Atelectasis; F17.210 Nicotine dependence, cigarettes, uncomplicated; E11.9 Type 2 diabetes mellitus without complications; I10 Essential (primary) hypertension; E78.5 Hyperlipidemia, unspecified; Z82.49 Family history of ischemic heart disease and other diseases of the circulatory system; I25.10 Atherosclerotic heart disease of native coronary artery without angina pectoris; Z71.6 Tobacco abuse counseling; I25.82 Chronic total occlusion of coronary artery
CPT/HCPCS: 36415; 71045; 71046; 80048; 80053; 80061; 83735; 83880; 84484; 85007; 85025; 85347; 85610; 85730; 92929; 92941; 93005; 93306; 93458; 99152; 99153; 99291; C1725; C1760; C1769; C1876; C1894; C9601; C9606; C9803; J1644; Q9967; U0003; U0005

== ENCOUNTER → 2021-10-13 09:35 | Outpatient (CLI) | payer BC, SELFPAY | PROVIDERS: Visit Provider Nurse Practitioner Family | DX: Z01.812 Encounter for preprocedural laboratory examination (principal); Z20.822 Contact with and (suspected) exposure to COVID-19 | CPT/HCPCS: C9803; U0003; U0005 ==

== ENCOUNTER 2021-10-14 08:16 | Day surgery (SDC) | payer BC, SELFPAY ==
[2021-10-14] VITALS (13 sets, daily range): BP systolic 104–151; BP diastolic 53–101; PULSE 71–83; RESP 17–18; O2SAT 93–98; BMI 32.4
--- NOTE | 2021-10-14 07:11 | IR_ITS ---
APPROVED REPORT Patient Location: Outpatient Leadership Coach: HARMEET Cottrell RT (R) PROCEDURES Selective coronary angiogram Intravascular lithotripsy to the proximal dominant right coronary artery Drug-eluting stent deployment to the ostial proximal and mid dominant right coronary INDICATION Recent ST elevation myocardial infarction, Calcified coronary artery disease, Informed consent was obtained prior to the procedure. COMPLICATIONS None Estimated Blood Loss: Less than 10 mls TECHNIQUE One percent lidocaine used to anesthetize the right anterior aspect of the wrist. The right radial artery was accessed via the Seldinger technique. A 6 [place] sheath was placed in the right radial artery. 2.5 mg of verapamil, 800 mcg of nitroglycerin, 1mg Lidocaine and 5000 U Heparin were given through the arterial sheath. The papa catheter was also used to perform selective coronary angiogram. Therapeutic heparin had already been administered and the ACT was therapeutic. The guide catheter was placed in the right coronary artery followed by a Choice PT extra-support wire. A shockwave 4 mm x 12 mm balloon was deployed on 5 separate inflations at 4 and then 6 jorge luis delivering a total of 50 shocks. Following excellent angiographic prepping of the vessel a 4 mm x 38 mm Xience drug-eluting stent was deployed at 20 jorge luis in the mid to distal right coronary reducing the stenosis to 0%. An additional 4 mm x 23 mm Xience drug-eluting stent was then placed ostially and proximally yet still overlapping the first stent and deployed at 20 jorge luis. Excellent angiograph results were produced. EMELYN-3 flow was present before and after the procedure. At the end of procedure the apparatus was removed the sheath was removed and hemostasis was achieved using TR banding patient was transferred to the postop putting in stable condition IMPRESSION Severe disease in the proximal and mid dominant right coronary artery Successful stent in the ostial proximal mid and distal dominant right coronary artery severe disease reduced to 0% with 2 contiguous drug-eluting overlapping stents PLAN 1. Continue dual antiplatelet therapy 2. Risk factor modification 3. Cardiac rehabilitation 4. Avoidance of tobacco products 5. LDL less than 55 to be achieved with high intensity statin Electronically signed by : Jorge Luis Washington MD 10/14/2021 12:30:49
[2021-10-14 09:00] LABS: Basophils # 0.3 K/mm3 (0-0.2); Basophils % 2.2 % (0.1-2.0); Eosinophils # 0.6 K/mm3 (0.0-0.4); Hematocrit 44.3 % (42.0-52.0); Hemoglobin 14.1 g/dL (14.1-18.0); Lymphocytes # 2.2 K/mm3 (0.7-4.5); Lymphocytes % 19.5 % (10-50); Mean Corpuscular HGB Conc 31.9 g/dL (31.8-35.4); Mean Corpuscular Hemoglobin 30.2 pg (27.0-31.2); Mean Corpuscular Volume 94.4 fl (80-94); Mean Platelet Volume 8.1 fl (7.4-10.4); Monocytes # 0.7 K/mm3 (0.1-1.0); Monocytes % 5.8 % (1.7-9.3); Neutrophils # 7.7 K/mm3 (1.8-7.8); Neutrophils % 67.6 % (37.0-80.0); Platelet Count 273 K/mm3 (142-424); Red Blood Count 4.69 M/mm3 (4.60-6.20); White Blood Count 11.4 K/mm3 (4.8-10.8)
[2021-10-14 09:05] LABS: Anion Gap 11.4 mEq/L (5-15); Blood Urea Nitrogen 14 mg/dl (9-20); Calcium 9.4 mg/dl (8.4-10.2); Carbon Dioxide 21 mmol/L (22.0-30.0); Chloride 110 mmol/L (98-107); Creatinine Clearance Estimated 101 mL/min (50-200); Estimated Glomerular Filt Rate 76 ml/min (>60); GFR (African American) 92 ML/MIN (>60); Glucose 119 mg/dl (74-100); Potassium 4.4 mmoL/L (3.5-5.1); Sodium 138 mmol/L (136-145)
[2021-10-14 11:58] LABS: CATHL Activated Clotting Time > 400 SEC (74-125)
--- NOTE | 2021-10-14 15:10 | HMH.PHACLD ---
Chuy Leslie has received discharge medication counseling on the following medications: -ASPIRIN -ATORVASTATIN -BRLINITA -ENTRESTO -CARVEDILOL
== END 2021-10-14 15:00 | disposition home or self-care (01) ==
LOC: CATHLAB 08:18
PROVIDERS: Visit Provider Internal Medicine
DX: I21.3 ST elevation (STEMI) myocardial infarction of unspecified site (principal); I25.10 Atherosclerotic heart disease of native coronary artery without angina pectoris; E11.9 Type 2 diabetes mellitus without complications; Z95.5 Presence of coronary angioplasty implant and graft; Z79.899 Other long term (current) drug therapy; Z82.49 Family history of ischemic heart disease and other diseases of the circulatory system; F17.210 Nicotine dependence, cigarettes, uncomplicated
CPT/HCPCS: 80048; 85025; 85347; 92928; 99152; 99153; C1725; C1760; C1761; C1769; C1876; C9600; J1644; Q9967

== ENCOUNTER → 2021-10-24 10:29 | Outpatient (CLI) | payer BC, SELFPAY ==
[2021-10-24 10:58] LABS: Basophils # 0.2 K/mm3 (0-0.2); Basophils % 1.6 % (0.1-2.0); Eosinophils # 0.7 K/mm3 (0.0-0.4); Eosinophils % 6.4 % (0.1-12.0); Hematocrit 44.1 % (42.0-52.0); Hemoglobin 13.8 g/dL (14.1-18.0); Lymphocytes # 2.4 K/mm3 (0.7-4.5); Lymphocytes % 23.2 % (10-50); Mean Corpuscular HGB Conc 31.2 g/dL (31.8-35.4); Mean Corpuscular Hemoglobin 29.6 pg (27.0-31.2); Mean Platelet Volume 7.9 fl (7.4-10.4); Monocytes # 0.7 K/mm3 (0.1-1.0); Monocytes % 7.1 % (1.7-9.3); Neutrophils # 6.3 K/mm3 (1.8-7.8); Neutrophils % 61.6 % (37.0-80.0); Platelet Count 284 K/mm3 (142-424); Red Blood Count 4.65 M/mm3 (4.60-6.20); White Blood Count 10.2 K/mm3 (4.8-10.8)
[2021-10-24 12:01] LABS: Anion Gap 10.4 mEq/L (5-15); Blood Urea Nitrogen 9 mg/dl (9-20); Calcium 9.3 mg/dl (8.4-10.2); Carbon Dioxide 25 mmol/L (22.0-30.0); Chloride 106 mmol/L (98-107); Estimated Glomerular Filt Rate 68 ml/min (>60); GFR (African American) 83 ML/MIN (>60); Glucose 101 mg/dl (74-100); Potassium 4.4 mmoL/L (3.5-5.1); Sodium 137 mmol/L (136-145)
== END ==
PROVIDERS: Visit Provider Internal Medicine
DX: I25.10 Atherosclerotic heart disease of native coronary artery without angina pectoris (principal); I10 Essential (primary) hypertension
CPT/HCPCS: 36415; 80048; 85025

== ENCOUNTER → 2022-01-22 12:26 | Outpatient (CLI) | payer BC, SELFPAY | PROVIDERS: PCP Family Medicine; Visit Provider Physician Assistant | DX: R06.09 Other forms of dyspnea (principal); I42.9 Cardiomyopathy, unspecified; I50.20 Unspecified systolic (congestive) heart failure | CPT/HCPCS: 93308 ==

== ENCOUNTER → 2022-02-23 13:33 | Outpatient (CLI) | payer BC, SELFPAY ==
--- NOTE | 2022-02-23 14:33 | XR_ITS ---
FINAL REPORT CLINICAL HISTORY: dyspnea COMPARISON: September 14, 2021 FINDINGS: Two views of the chest were obtained. The heart size and pulmonary vascularity are within normal limits. The mediastinum is normal. There is mild left lung base atelectasis. There is no pneumothorax. There are moderate degenerative changes in the thoracic spine. IMPRESSION: Mild left lung base atelectasis. Reviewed, Interpreted and Dictated by Chinmay Sotelo III, MD Transcribed by Crystal English Authenticated and [facility]
[2022-02-23 14:37] LABS: Basophils # 0.2 K/mm3 (0-0.2); Basophils % 1.8 % (0.1-2.0); Eosinophils # 0.4 K/mm3 (0.0-0.4); Eosinophils % 4.7 % (0.1-12.0); Hematocrit 45.6 % (42.0-52.0); Hemoglobin 15.4 g/dL (14.1-18.0); Lymphocytes # 1.8 K/mm3 (0.7-4.5); Lymphocytes % 22.8 % (10-50); Mean Corpuscular HGB Conc 33.7 g/dL (31.8-35.4); Mean Corpuscular Hemoglobin 29.9 pg (27.0-31.2); Mean Corpuscular Volume 88.7 fl (80-94); Mean Platelet Volume 8.5 fl (7.4-10.4); Monocytes # 0.4 K/mm3 (0.1-1.0); Monocytes % 4.9 % (1.7-9.3); Neutrophils # 5.2 K/mm3 (1.8-7.8); Neutrophils % 65.7 % (37.0-80.0); Platelet Count 260 K/mm3 (142-424); Red Blood Count 5.14 M/mm3 (4.60-6.20); Red Cell Distribution Width 13.4 % (11.5-17.5)
[2022-02-23 15:20] LABS: Alanine Aminotransferase 23 U/L (12-78); Albumin Level 4.6 g/dl (3.5-5.0); Alkaline Phosphatase 64 U/L (38-126); Anion Gap 15.3 mEq/L (5-15); Aspartate Amino Transferase 26 U/L (17-59); Bilirubin,Direct 0.1 mg/dl (0.0-0.4); Bilirubin,Indirect 0.3 mg/dL (0.0-0.9); Bilirubin,Total 0.4 mg/dl (0.2-1.3); Bilirubin,Unconjugated 0.2 mg/dL (0.0-1.1); Blood Urea Nitrogen 12 mg/dl (9-20); Carbon Dioxide 22 mmol/L (22.0-30.0); Chloride 106 mmol/L (98-107); Chol/HDL Ratio 3.7 (1-3.5); Cholesterol 163 mg/dl (140-200); Estimated Glomerular Filt Rate 62 ml/min (>60); GFR (African American) 74 ML/MIN (>60); Glucose 117 mg/dl (74-100); HDL Cholesterol 44 mg/dl (40-60); Magnesium 1.9 mg/dl (1.6-2.3); Potassium 4.3 mmoL/L (3.5-5.1); Sodium 139 mmol/L (136-145); Total Protein,Serum 7.5 g/dl (6.3-8.2); Triglycerides 128 mg/dl (30-150); VLDL Cholesterol 26 mg/dL (0-40)
[2022-02-23 15:31] LABS: Direct LDL Cholesterol 91.85 mg/dL (100-129)
[2022-02-23 15:35] LABS: Free T4 (Free Thyroxine) 0.91 ng/dl (0.78-2.19)
== END ==
PROVIDERS: PCP Family Medicine; Visit Provider Physician Assistant
DX: R06.09 Other forms of dyspnea (principal); I25.10 Atherosclerotic heart disease of native coronary artery without angina pectoris; I25.5 Ischemic cardiomyopathy; I11.0 Hypertensive heart disease with heart failure; I50.21 Acute systolic (congestive) heart failure; E78.2 Mixed hyperlipidemia; R74.01 Elevation of levels of liver transaminase levels; Z72.0 Tobacco use; Z78.9 Other specified health status
CPT/HCPCS: 36415; 71046; 80048; 80061; 80076; 83735; 84439; 84443; 85025

== ENCOUNTER 2023-03-17 13:21 | Outpatient (CLI) | payer BC, SELFPAY ==
[2023-03-17 13:42] LABS: Basophils # 0.1 K/mm3 (0-0.2); Basophils % 1.3 % (0.1-2.0); Eosinophils # 0.3 K/mm3 (0.0-0.4); Eosinophils % 3.4 % (0.1-12.0); Hematocrit 45.5 % (42.0-52.0); Hemoglobin 15.2 g/dL (14.1-18.0); Lymphocytes # 1.9 K/mm3 (0.7-4.5); Lymphocytes % 19.1 % (10-50); Mean Corpuscular HGB Conc 33.4 g/dL (31.8-35.4); Mean Corpuscular Hemoglobin 30.4 pg (27.0-31.2); Mean Platelet Volume 7.9 fl (7.4-10.4); Monocytes # 0.7 K/mm3 (0.1-1.0); Monocytes % 6.5 % (1.7-9.3); Neutrophils % 69.6 % (37.0-80.0); Platelet Count 252 K/mm3 (142-424); Red Cell Distribution Width 13.6 % (11.5-17.5); White Blood Count 10.1 K/mm3 (4.8-10.8)
[2023-03-17 14:17] LABS: Chloride 103 mmol/L (98-107); Sodium 139 mmol/L (136-145)
[2023-03-17 14:18] LABS: Potassium 4.1 mmoL/L (3.5-5.1)
[2023-03-17 14:20] LABS: Alanine Aminotransferase 25 U/L (12-78); Albumin Level 4.3 g/dl (3.5-5.0); Alkaline Phosphatase 59 U/L (38-126); Anion Gap 14.1 mEq/L (5-15); Aspartate Amino Transferase 27 U/L (17-59); Bilirubin,Indirect 0.5 mg/dL (0.0-0.9); Bilirubin,Total 0.5 mg/dl (0.2-1.3); Bilirubin,Unconjugated 0.5 mg/dL (0.0-1.1); Blood Urea Nitrogen 12 mg/dl (9-20); Carbon Dioxide 26 mmol/L (22.0-30.0); Cholesterol 188 mg/dl (140-200); Estimated Glomerular Filt Rate 56 ml/min (>60); GFR (African American) 68 ML/MIN (>60); Total Protein,Serum 7.2 g/dl (6.3-8.2); Triglycerides 218 mg/dl (30-150); VLDL Cholesterol 44 mg/dL (0-40)
[2023-03-17 14:21] LABS: Calcium 9.3 mg/dl (8.4-10.2); Chol/HDL Ratio 4.6 (1-3.5); Glucose 90 mg/dl (74-100); HDL Cholesterol 41 mg/dl (40-60); Magnesium 1.8 mg/dl (1.6-2.3)
[2023-03-17 14:38] LABS: Free T4 (Free Thyroxine) 0.92 ng/dl (0.78-2.19)
[2023-03-17 15:33] LABS: Thyroid Stimulating Hormone 0.87 uIU/mL (0.465-4.68)
== END 2023-03-17 23:59 ==
LOC: LAB 13:22
PROVIDERS: PCP Family Medicine; Visit Provider Nurse Practitioner
DX: E78.5 Hyperlipidemia, unspecified (principal); I11.0 Hypertensive heart disease with heart failure; I25.10 Atherosclerotic heart disease of native coronary artery without angina pectoris; I42.9 Cardiomyopathy, unspecified; I50.20 Unspecified systolic (congestive) heart failure; R74.01 Elevation of levels of liver transaminase levels; Z72.0 Tobacco use
CPT/HCPCS: 36415; 80048; 80061; 80076; 83735; 84439; 84443; 85025

== ENCOUNTER 2023-04-14 11:48 | Outpatient (CLI) | payer BC, SELFPAY ==
--- NOTE | 2023-04-14 11:49 | CA_ITS ---
APPROVED REPORT EXAM: Comprehensive 2D, Doppler, and color-flow Echocardiogram Strategic Client Executive: Noemi Martinez RT(R) Ht: 5 ft 7 in Wt: 200lbs BSA: 2.02 BP: 173/87 mmHg Indications: CP, HTN, ex smoker, BRAVO, CAD, CM. Patient was advised that contrast agent would enhance his echo imaging but he declined. He was scheduled for a nuclear stress today but refused it citing he wanted NO injections. Artifact vs thrombus visualized in apex. 2D Dimensions LA Volume 33.80 mL LA Volume Index 16.73 mL/m2 (M/F) 16-34 EF AP4 46.90 % GL Strain -9.9 % M-Mode Dimensions RVDd 3.01 cm (0.9-2.6) LA Diam 2.62 cm (1.9-4.0) LVDd 4.62 cm (3.5-5.7) LVDs 3.49 cm (3.5-5.7) IVSd 1.00 cm (0.6-1.1) PWd 0.76 cm (0.6-1.1) EF (Teich) 48.60% FS 24.50% EDV (Teich) 98.30 mL ESV (Teich) 50.50 mL LV Diastology E Decel Time 333 (160-240 msec) E/A Ratio 0.7 Mitral Valve MV E Max Boyd. 43.0 (40-130 cm/s) MV A Velocity 61.0 (40-130 cm/s) E/A Ratio 0.70 MV PHT 98.0 ms Left Ventricle The left ventricle is normal size. The left ventricular systolic function is normal. The left ventricular ejection fraction is within the normal range. There is increased LV wall thickness. There is hypokinesis of the apical LV wall. An apical LV thrombus is suspected (vs. artifact), but cannot be ruled out due to absence of ultrasound enhancing agent administration (patient declined). LVEF is 55%. Right Ventricle The right ventricle is normal size. The right ventricular systolic function is normal. Atria The left atrium size is normal. The right atrium size is normal. There is no Doppler evidence of interatrial shunt. Aortic Valve The aortic valve is mildly thickened. The aortic valve is trileaflet. There is no aortic valvular stenosis. Mild aortic regurgitation. Mitral Valve The mitral valve is mildly thickened. Trace mitral regurgitation. Tricuspid Valve The tricuspid valve leaflets are thin and pliable. Trace tricuspid regurgitation. There is insufficient TR jet to estimate RVSP. Pulmonic Valve The pulmonary valve is normal in structure. Trace pulmonic regurgitation. Great Vessels The aortic root is normal in size. The ascending aorta is normal in size. IVC is normal in size and collapses >50% with inspiration. Pericardium There is no pericardial effusion. Other Information Study Quality: Fair Conclusion Normal biventricular systolic function. Hypokinesis of the apical LV wall. An apical LV thrombus is suspected (vs. artifact), but cannot be ruled out due to absence of ultrasound enhancing agent administration (patient declined). Mild AI. Electronically signed by : Ira Sosa MD 04/15/2023 10:23:30
== END 2023-04-14 23:59 ==
LOC: RAD 11:49
PROVIDERS: PCP Family Medicine; Visit Provider Nurse Practitioner
DX: E78.5 Hyperlipidemia, unspecified (principal); I11.0 Hypertensive heart disease with heart failure; I25.10 Atherosclerotic heart disease of native coronary artery without angina pectoris; I50.20 Unspecified systolic (congestive) heart failure; R74.01 Elevation of levels of liver transaminase levels; Z87.891 Personal history of nicotine dependence
CPT/HCPCS: 93306

== ENCOUNTER 2023-04-19 06:13 | Outpatient (CLI) | payer BC, SELFPAY ==
--- NOTE | 2023-04-19 06:28 | NM_ITS ---
APPROVED REPORT Exam: Nuclear Stress Test Indication: Chest pain, SOB, HTN, High cholesterol, Former tobacco use, Family history, CAD, Hx of PR Patient Location: Outpatient Stress Tech: Anyi Veras NM Tech:Joan Tirado, ARRT, RT (R)(N) Ht: 6 ft 0 in Wt: 213 lbs HR: 67 bpm BP: 131/71 mmHg BSA: 2.19 m2 Rhythm: NSR TID: 1.05 History: Chest pain, SOB, HTN, High cholesterol, Former tobacco use, Family history, CAD, Hx of PR Procedure: Patient received 0.4 mg of intravenous Lexiscan, resting heart rate 67 bpm, resting blood pressure 131/71 mmHg, with Lexiscan maximum heart rate achieved was 86 bpm which is % of the maximum predicted heart rate and blood pressure was 131/71 mmHg. With Lexiscan, patient denied any complaint of chest pain. Cardiac Stress and Resting SPECT Images: Cardiac Stress and Resting SPECT images were obtained using technetium 99m Myoview 30.6 mCi stress and 10.02 mCi at rest. Resting and stress imaging in supine and prone positions demonstrate a large sized, severe, fixed perfusion defect inferior LV wall from the base and extending distally towards the inferior apical region. There is also a large, severe, fixed apical perfusion defect present. Gated imaging demonstrates moderate reduction in global LV systolic function. There is akinesis of the distal LV colon and the LV apex. Basal inferior LV wall appears severely hypokinetic. LVEF is calculated at 39%. Conclusion: Large sized, severe, fixed perfusion defect inferior LV wall from the base and extending distally towards the inferior apical region. There is also a large, severe, fixed apical perfusion defect present. No evidence of reversible ischemia. Gated imaging demonstrates moderate reduction in global LV systolic function. There is akinesis of the distal LV colon and the LV apex. Basal inferior LV wall appears severely hypokinetic. LVEF is calculated at 39%. Electronically signed by : Ira Sosa MD 04/19/2023 13:09:47
[2023-04-19] MEDS: SODIUM CHLORIDE 0.9% 10ML SYR (RAD ONLY) 10 ML IV ×2 (08:36)
[2023-04-19] MEDS: ISOTOPE MYOVIEW (PER STUDY) 1 DOSE IV (08:36)
[2023-04-19] MEDS: REGADENOSON 0.4MG/5ML SYRINGE 0.400000000000000022 MG IV (08:37)
--- NOTE | 2023-04-19 08:46 | CA_ITS ---
APPROVED REPORT Exam: Pharmacologic Technologist: Anyi Alicia, Ht: 5 ft 6 in Wt: 213 lbs BSA: 2.05 m2 HR: 68 bpm BP: 131/71 mmHg Rhythm: NSR Medical History Medications: Aspirin,,,,, Atorvastatin,,,,, Albuterol,,,,, Protonix,,,,, Plavix,,,,, BisOPROLOL Fumarate,,,,, EnTRESTO,,,,, Stress Test Details Test: LEXISCAN Reason for pharmacologic stress test: changed from exercise stress test due to inability to reach target heart rate. HR Resting HR: 67 bpm Max Heart Rate (APMHR): 158 bpm Max HR Achieved: 86 bpm Target HR (85% APMHR): 134 bpm % of APMHR: 54 Recovery HR: 83 bpm BP Resting BP: 131/71 mmHg Max BP: 131/71 mmHg Recovery BP: 124.0/80.0 mmHg ECG Resting ECG: NSR, cannot rule out old septal MT Stress ECG: No significant ST changes Arrhythmia: Brief episode of ventricular bigeminy Clinical Exercise duration: 04:14 min Highest Stage Achieved: Exercise capacity: 1.0 METs Stress ECG Conclusion Symptoms: No CP Arrhythmias/Ectopy: Brief episode of ventricular bigeminy ST-T Changes: No significant ST changes Conclusion: Unremarkable Lexiscan stress test. Myoview images reported separately. Test Summary REST . . . . . . . Resting REST 00:46 . . 67 . 131/ 71 . . Stage 1 01:00 . . 80 . . . . Stage 2 01:00 . . 80 . . . . Stage 3 01:00 . . 80 . 124/ 72 . . Stage 4 01:00 . . 79 . 119/ 71 . . Stage 4 01:14 . . 75 . 115/ 73 . Stop exercise at 04:14 RECOVERY 01:00 . . 83 . . . . RECOVERY 01:33 . . 79 . 124/ 80 . . Electronically signed by : Ira Sosa MD 04/19/2023 13:06:48
== END 2023-04-19 23:59 ==
PROVIDERS: PCP Family Medicine; Visit Provider Nurse Practitioner
DX: R06.09 Other forms of dyspnea (principal); I25.10 Atherosclerotic heart disease of native coronary artery without angina pectoris; I42.8 Other cardiomyopathies; I50.20 Unspecified systolic (congestive) heart failure; I10 Essential (primary) hypertension; E78.5 Hyperlipidemia, unspecified; R74.01 Elevation of levels of liver transaminase levels; Z72.0 Tobacco use
CPT/HCPCS: 78452; 93017; 93018; A9502; J2785

== ENCOUNTER 2024-02-09 09:50 | Outpatient (CLI) | payer BC, SELFPAY ==
[2024-02-09 10:05] LABS: Basophils # 0.2 K/mm3 (0-0.2); Basophils % 1.9 % (0.1-2.0); Eosinophils # 0.3 K/mm3 (0.0-0.4); Eosinophils % 3.6 % (0.1-12.0); Hematocrit 45.3 % (42.0-52.0); Hemoglobin 15.5 g/dL (14.1-18.0); Lymphocytes # 1.6 K/mm3 (0.7-4.5); Lymphocytes % 20.1 % (10-50); Mean Corpuscular HGB Conc 34.2 g/dL (31.8-35.4); Mean Corpuscular Hemoglobin 30.6 pg (27.0-31.2); Mean Corpuscular Volume 89.3 fl (80-94); Mean Platelet Volume 7.9 fl (7.4-10.4); Monocytes # 0.5 K/mm3 (0.1-1.0); Monocytes % 6.7 % (1.7-9.3); Neutrophils # 5.3 K/mm3 (1.8-7.8); Neutrophils % 67.8 % (37.0-80.0); Platelet Count 247 K/mm3 (142-424); Red Blood Count 5.07 M/mm3 (4.60-6.20); Red Cell Distribution Width 13.7 % (11.5-17.5); White Blood Count 7.8 K/mm3 (4.8-10.8)
[2024-02-09 10:19] LABS: Albumin Level 4.4 g/dl (3.5-5.0)
[2024-02-09 10:20] LABS: Chloride 107 mmol/L (98-107); Potassium 4.3 mmoL/L (3.5-5.1); Sodium 139 mmol/L (136-145)
[2024-02-09 10:22] LABS: Alanine Aminotransferase 21 U/L (12-78); Anion Gap 12.3 mEq/L (5-15); Aspartate Amino Transferase 25 U/L (17-59); Bilirubin,Unconjugated 0.2 mg/dL (0.0-1.1); Blood Urea Nitrogen 16 mg/dl (9-20); Carbon Dioxide 24 mmol/L (22.0-30.0); Estimated Glomerular Filt Rate 61 ml/min (>60); GFR (African American) 74 ML/MIN (>60)
[2024-02-09 10:23] LABS: Alkaline Phosphatase 43 U/L (38-126); Bilirubin,Direct 0.4 mg/dl (0.0-0.4); Bilirubin,Indirect 0.2 mg/dL (0.0-0.9); Bilirubin,Total 0.6 mg/dl (0.2-1.3); Calcium 9.5 mg/dl (8.4-10.2); Chol/HDL Ratio 4.6 (1-3.5); Cholesterol 195 mg/dl (140-200); Glucose 113 mg/dl (74-100); HDL Cholesterol 42 mg/dl (40-60); Total Protein,Serum 6.7 g/dl (6.3-8.2); Triglycerides 125 mg/dl (30-150); VLDL Cholesterol 25 mg/dL (0-40)
[2024-02-09 10:34] LABS: Direct LDL Cholesterol 123.19 mg/dL (100-129)
[2024-02-09 10:40] LABS: Free T4 (Free Thyroxine) 0.88 ng/dl (0.78-2.19)
[2024-02-09 13:18] LABS: Thyroid Stimulating Hormone 0.57 uIU/mL (0.465-4.68)
== END 2024-02-09 23:59 | disposition home or self-care (01) ==
LOC: LAB 09:51
PROVIDERS: PCP Family Medicine; Visit Provider Nurse Practitioner
DX: R06.09 Other forms of dyspnea (principal); I50.21 Acute systolic (congestive) heart failure; I25.10 Atherosclerotic heart disease of native coronary artery without angina pectoris; I25.5 Ischemic cardiomyopathy; I10 Essential (primary) hypertension; E78.2 Mixed hyperlipidemia
CPT/HCPCS: 36415; 80048; 80061; 80076; 84439; 84443; 85025

== ENCOUNTER 2024-08-15 11:08 | Outpatient (CLI) | payer OTHER, SELFPAY ==
--- OUTSIDE RECORDS SUMMARY | 2024-08-15 11:12 | XMS_ITS | Clinical Summary ---
Author Organization [facility] Address [address] [place] [address] Phone Care Team Providers Care Operations Vocational Instructor Name Role Phone Henry Irizarry MD Primary Care Provider [phone] Allergies No known active allergies Medications aspirin (ASPIRIN) 81 mg Oral Tablet, ChewableIndicati ons:[place] cardiac risk 10-20% in next 10 years Take 1 Tab by mouth daily. 90 Tab 3 0 Active Additional Information Patient not taking.Reported on 12/27/2023 ENTRESTO 97-103 mg Oral Tablet Take 1 Tablet by mouth 2 times daily. 3 Active amLODIPine (NORVASC) 5 mg Oral TabletIndication s:Essential hypertension Take 1 Tablet by mouth daily. 90 Tablet 3 4 Active atorvastatin (LIPITOR) 20 mg Oral TabletIndication s:Mixed hyperlipidemia,C oronary artery disease involving cherokee coronary artery of cherokee heart without angina pectoris Take 1 Tablet by mouth daily. 90 Tablet 3 4 Active bisoprolol (ZEBETA) 10 mg Oral TabletIndication s:Chronic systolic congestive heart failure (HCC),Coronary artery disease involving cherokee coronary artery of cherokee heart without angina pectoris Take 1 Tablet by mouth daily. 90 Tablet 3 4 Active metFORMIN (GLUCOPHAGE XR) 500 mg Oral ER 24 hr tabletIndication s:Prediabetes Take 1 Tablet by mouth daily (with breakfast). 90 Tablet 3 4 Active clopidogreL (PLAVIX) 75 mg Oral Tablet Take 75 mg by mouth daily. Active pantoprazole (PROTONIX) 40 mg Oral Tablet, Delayed Release (E.C.)Indication s:Gastroesophage al reflux disease, unspecified whether esophagitis present Take 1 Tablet by mouth daily. 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 Advised to take medication as prescribed. Advice: - take medications as prescribed Medication Management: - medication management decisions took place at today's visit (see orders) Orders: TSH REFLEX; Future LIPID PANEL REFLEX; Future atorvastatin (LIPITOR) 20 mg Oral Tablet; Take 1 Tablet by mouth daily. Restart previous statin Chronic systolic congestive heart failure 2023 Assessment & Plan (12/06/2023 9:06 AM EDT): Orders: bisoprolol (ZEBETA) 10 mg Oral Tablet; Take 1 Tablet by mouth daily. Restart previous beta-adan, continue on Entresto as well. Follows with cardiology at [facility]. Prediabetes 05/04/2022 Assessment & Plan (12/27/2023 10:04 AM EDT): - A1c to check today - Possibly dc Metformin if acceptable A1c, patient expressed wish to stop taking as many medications - reports some GI upset Assessment & Plan (12/06/2023 9:06 AM EDT): Orders: HEMOGLOBIN A1C; Future COMPREHENSIVE METABOLIC PANEL; Future TSH REFLEX; Future LIPID PANEL REFLEX; Future metFORMIN (GLUCOPHAGE XR) 500 mg Oral ER 24 hr tablet; Take 1 Tablet by mouth daily (with breakfast). Follow-up labs, restart metformin. Coronary artery disease invo lving cherokee coronary artery of cherokee heart without angina pectoris 05/01/2022 Overview (05/01/2022): On beta-adan, aspirin, Plavix, and statin. Had multiple stents placed at [facility] in September 2021 Assessment & Plan (12/06/2023 9:06 AM EDT): Orders: atorvastatin (LIPITOR) 20 mg Oral Tablet; Take 1 Tablet by mouth daily. bisoprolol (ZEBETA) 10 mg Oral Tablet; Take 1 Tablet by mouth daily. Restart beta-adan and statin. Continue daily low-dose aspirin. Follows with cardiology at [facility]. On ARB as well. Smokes with greater than 30 pack year history Dependence on nicotine from cigarettes 0 Essential hypertension 05/02/2019 Overview (04/30/2020): DASH diet, amlodipine 5 mg daily Assessment & Plan (12/27/2023 9:58 AM EDT): - Current BP today 138/82, improved from previous visit 144/82 - Counseled to continue Amlodipine at current dose Assessment & Plan (12/06/2023 9:06 AM EDT): Goal BP: <130/80 - not at goal Compliance: - compliant with medications - non-compliant with medication. Advised to take medication as prescribed. Home Blood Pressure Monitoring: - continue home BP monitoring as previous and bring readings to each office visit Advice: - continue a low salt diet and remain physically active Medication Management: - medication management decisions took place at today's visit (see orders) Restart previous amlodipine and follow-up blood pressure next visit in 2 to 3 weeks. Orders: HEMOGLOBIN A1C; Future COMPREHENSIVE METABOLIC PANEL; Future TSH REFLEX; Future LIPID PANEL REFLEX; Future amLODIPine (NORVASC) 5 mg Oral Tablet; Take 1 Tablet by mouth daily. Ganglion cyst 05/02/2019 Overview (05/02/2019): Left wrist, conservative management Encounters Date Type Department Care Team Description 06/05/2024 Patient Outreach [facility] [address] [place] [address] Henry Irizarry MD Central Order Completion Outreach (LDCT/cologuard) from Last 3 Months Immunizations Immunization Administration Dates Next Due Hepatitis A, Adult 02/17/2018 Pfizer SARS-CoV-2 Vaccine 12+ Yrs (Purple Cap) 0 11/29/2020 Tdap 05/01/2022,05/28/2009 Zoster Recombinant 04/30/2020,05/02/2019 Medical History Medical History Date Comments Coronary artery disease invo lving cherokee coronary artery of cherokee heart without angina pectoris 05/01/2022 Essential hypertension 05/02/2019 HLD (hyperlipidemia) 12/06/2023 Family History Medical History Relation Name Comments Cancer Father Heart Disease Mother Relation Name Status Comments Father Mother Social History Tobacco Use Types Packs/Day Years Used Date Smoking Tobacco: Former Cigarettes 1 47.5 0 03/08/1975 - 09/12/2022 Smokeless Tobacco: Never Tobacco Cessation:Counseling Given: Not Answered Alcohol Use Standard Drinks/Week Comments Yes 0 (1 standard drink = 0.6 oz pur e alcohol) PHQ-2 Answer Date Recorded PHQ-2 Total Score 0 12/06/2023 Sexually Active Control Partners Comments Yes Female Sex and Gender Information Value Date Recorded Sex Assigned at Not on file Legal Sex Male 10:05 AM EST Gender Identity Not on file Sexual Orientation Not on file Obstetrics History Last Filed Vital Signs Vital Sign Reading Time Taken Comments Blood Pressure 138/82 12/27/2023 8:19 AM EDT Pulse 96 12/27/2023 8:19 AM EDT Temperature 36.8 C (98.2 F) 12/27/2023 8:19 AM EDT Respiratory Rate 16 12/27/2023 8:19 AM EDT Oxygen Saturation 98% 12/27/2023 8:19 AM EDT Inhaled Oxygen Concentration - - Weight 99.3 kg (219 lb) 12/27/2023 8:19 AM EDT Height 170.2 cm (5' 7 ) 12/27/2023 8:19 AM EDT Body Mass Index 34.3 12/27/2023 8:19 AM EDT Plan of Treatment Health Maintenance Due Date Last Done Comments Pneumococcal Vaccine 50+ (1 of 2 - PCV) 01/07/1980 Cologuard 2006 Colon Cancer Screening 2006 Colonoscopy 2006 FIT 2006 Sigmoidoscopy 2006 Virtual Colonography 2006 Low Dose Lung Cancer Screening 2011 RSV or 60+ (1 - Ris k 60-74 years 1-dose series) 2021 COVID-19 Vaccine (3 - 2023-2 5 season) 2023 12/20/2020, 11/29/2020 Influenza Vaccine (Season Ended) 2024 Annual Wellness Exam 12/05/2024 12/06/2023, 05/01/2022, 05/02/2019 DTaP/TDaP/Td (3 - Td or Tdap) 05/01/2032, 05/28/2009 Hepatitis C Screening Completed 05/02/2019 Zoster Completed 04/30/2020, 05/02/2019 Hepatitis B Vaccine Aged Out No longe r eligible based on patient's age to complete this topic Meningococcal B Vaccine Aged Out No l onger eligible based on patient's age to complete this topic Goals Goal Patient Goal Type Associated Problems Recent Progress Patient-Stated? Author Blood Pressure < 140/90 Blood Pressure 138/82(2023 8:19 AM EDT) No Henry Irizarry MD Maintain a healthy diet, exercise regularly and maintain an ideal body weight General No Henry Irizarry MD Stay Tobacco Free Lifestyle No Henry Irizarry MD Procedures Procedure Name Priority Date/Time Associated Diagnosis Comments HCV ANTIBODY SCREEN W/ REFLEX Routine 05/02/2019 9:06 AM EST Annual physical exam Need for hepatitis C screening test from Last 3 Months or Most Recently Relevant to Health Maintenance Results * HEPATITIS C ANTIBODY - SCREENING (05/02/2019 9:06 AM EST) Hep C Ab Non-Reactiv e Non-Reacti ve 05/02/2019 6:09 PM EST [employer] Blood VENOUS BLOOD / Unknown Venipuncture / Unknown 05/02/2019 9:06 AM EST 05/02/2019 9:06 AM EST us Henry Irizarry MD HEMATOLOGY ORDERABLES Final Re sult [facility] [address] [facility] [address] [place] [address] from Last 3 Months or Most Recently Relevant to Health Maintenance Insurance [facility] MEDICAID [facility] MEDICAID Care Teams Operations Vocational Instructor Relationship Specialty Start Date End Date Henry Irizarry MD [address] [place] [address] [place] [address] PCP - General Family Medicine 05/02/19
--- OUTSIDE RECORDS SUMMARY | 2024-08-15 11:12 | XMS_ITS | Clinical Summary ---
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 Name Role Phone Unavailable Primary Care Provider Unavailabl e Social History Tobacco Use Types Packs/Day Years Used Date Smoking Tobacco: Never Assessed Sex and Gender Information Value Date Recorded Sex Assigned at Not on file Legal Sex Male 7:58 PM EDT Gender Identity Not on file Sexual Orientation Not on file Plan of Treatment Health Maintenance Due Date Last Done Comments [facility]-Depression Screening 1961 [facility]-/Child/Adol SDOH Screenings 1961 [facility]- SDOH Screenings 1979 [facility]-Adult SDOH Screenings 1979 CT Colonography 2006 Colonoscopy 2006 FIT-DNA 2006 FIT 2006 FOBT 2006 Sigmoidoscopy 2006 [facility]-Colorectal Cancer Screening 2006 [facility]-Pneumococcal Vaccine: 50 + Years (1 of 1 - PCV) 2011 [facility]-DTaP,Tdap,and Td Vaccine s (2 - Td or Tdap) 05/29/2019 05/28/2009 [id number] Vaccine ( - season) 2023 12/20/2020, 11/29/2020 [facility]-Influenza Vaccine ([place] n Ended) 2024 [facility]-RSV Vaccine: 60+ Years o r (1 - 1-dose 75+ series) 01/07/2036 [facility]-Hepatitis A Vaccines Aged Out 02/17/2018 No longer eligible based on patient's age to complete this topic [facility]-Zoster Vaccines Completed 04/30/2020, 05/02/2019 HPV Vaccines Aged Out No longer eligi ble based on patient's age to complete this topic [facility]-HIB Vaccines Aged Out No longer e ligible based on patient's age to complete this topic [facility]-IPV Vaccines Aged Out No longer e ligible based on patient's age to complete this topic [facility]-Rotavirus Vaccines Aged Out No lo nger eligible based on patient's age to complete this topic
[2024-08-15 11:41] LABS: Basophils # 0.1 K/mm3 (0-0.2); Basophils % 1.2 % (0.1-2.0); Eosinophils # 0.3 Kmm3 (0.0-0.4); Eosinophils % 3.1 % (0.1-12.0); Hematocrit 48.5 % (42.0-52.0); Hemoglobin 15.7 g/dL (14.1-18.0); Immature Granulocytes # 0.03 10^3uL; Immature Granulocytes % 0.3 %; Lymphocytes # 1.7 K/mm3 (0.7-4.5); Lymphocytes % 17.8 % (10-50); Mean Corpuscular HGB Conc 32.4 g/dL (31.8-35.4); Mean Corpuscular Hemoglobin 28.8 pg (27.0-31.2); Mean Platelet Volume 9.8 fl (7.4-10.4); Monocytes # 0.8 K/mm3 (0.1-1.0); Monocytes % 8.9 % (1.7-9.3); Neutrophils # 6.4 K/mm3 (1.8-7.8); Neutrophils % 68.7 % (37.0-80.0); Nucleated Red Blood Cells # 0 10^3/uL; Nucleated Red Blood Cells % 0 %; Platelet Count 238 K/mm3 (142-424); Red Blood Count 5.45 M/mm3 (4.60-6.20); Red Cell Distribution Width 12.8 % (11.5-17.5); Red Cell Distribution Width-SD 41.4 fL; White Blood Count 9.3 K/mm3 (4.8-10.8)
[2024-08-15 12:14] LABS: Albumin Level 4.3 g/dl (3.5-5.0); Chloride 107 mmol/L (98-107)
[2024-08-15 12:15] LABS: Potassium 4.5 mmoL/L (3.5-5.1); Sodium 137 mmol/L (136-145)
[2024-08-15 12:17] LABS: Alanine Aminotransferase 18 U/L (12-78); Anion Gap 9.5 mEq/L (5-15); Aspartate Amino Transferase 23 U/L (17-59); Bilirubin,Unconjugated 0.4 mg/dL (0.0-1.1); Blood Urea Nitrogen 13 mg/dl (9-20); Carbon Dioxide 25 mmol/L (22.0-30.0); Cholesterol 227 mg/dl (140-200); Estimated Glomerular Filt Rate 68 ml/min (>60); GFR (African American) 82 ML/MIN (>60); Total Protein,Serum 6.9 g/dl (6.3-8.2); Triglycerides 175 mg/dl (30-150); VLDL Cholesterol 35 mg/dL (0-40)
[2024-08-15 12:18] LABS: Alkaline Phosphatase 49 U/L (38-126); Bilirubin,Direct 0.1 mg/dl (0.0-0.4); Bilirubin,Indirect 0.5 mg/dL (0.0-0.9); Bilirubin,Total 0.6 mg/dl (0.2-1.3); Calcium 9.5 mg/dl (8.4-10.2); Chol/HDL Ratio 4.7 (1-3.5); Glucose 104 mg/dl (74-100); HDL Cholesterol 48 mg/dl (40-60); Magnesium 1.9 mg/dl (1.6-2.3)
[2024-08-15 12:29] LABS: Direct LDL Cholesterol 135.69 mg/dL (100-129)
[2024-08-15 12:33] LABS: Free T4 (Free Thyroxine) 0.81 ng/dl (0.78-2.19)
[2024-08-15 12:48] LABS: Thyroid Stimulating Hormone 0.73 uIU/mL (0.465-4.68)
== END 2024-08-15 23:59 | disposition home or self-care (01) ==
LOC: LAB 11:09
PROVIDERS: Visit Provider Nurse Practitioner
DX: I25.10 Atherosclerotic heart disease of native coronary artery without angina pectoris (principal); I10 Essential (primary) hypertension
CPT/HCPCS: 36415; 80048; 80061; 80076; 83735; 84439; 84443; 85025